=== PATIENT | female | born 1970 | race Caucasian/White ===

== ENCOUNTER 2017-09-16 17:11 | Emergency (ER) | payer MEDICARE ==
[~2017-09-16] VITALS: Ht 165.1 cm; Wt 104.3 kg
[2017-09-16] MEDS ORDERED: TRAMADOL 50 MG50 MG PO (17:23)
[2017-09-16] MEDS ORDERED: CELEXA20 MG PO (17:23)
[2017-09-16] MEDS ORDERED: HYDROCODONE-AP1 EAC6 PO (19:22)
[2017-09-16] MEDS ORDERED: ROBAXIN 750 MG750 M1 PO (19:27)
[2017-09-16 19:39] VITALS: BP 142/77
== END 2017-09-16 19:39 | disposition home or self-care (01) ==
LOC: M.ERS 17:11
DX: M25.551 Pain in right hip (principal); G25.81 Restless legs syndrome; Z88.5 Allergy status to narcotic agent

== ENCOUNTER 2018-01-31 17:59 | Emergency (ER) | payer MEDICARE ==
[~2018-01-31] VITALS: Ht 165.1 cm; Wt 90.7 kg
[~2018-01-31 17:59] MED LIST: CELEXA20 MG PO; HYDROCODONE-AP1 EAC6 PO; ROBAXIN 750 MG750 M1 PO; TRAMADOL 50 MG50 MG PO
[2018-01-31 18:54] VITALS: BP 109/77
== END 2018-01-31 18:54 | disposition home or self-care (01) ==
LOC: M.ERS 17:59
DX: S90.32XA Contusion of left foot, initial encounter (principal); Z88.5 Allergy status to narcotic agent; W01.0XXA Fall on same level from slipping, tripping and stumbling without subsequent striking against object, initial encounter; Y93.89 Activity, other specified; Y92.89 Other specified places as the place of occurrence of the external cause; Y99.8 Other external cause status

== ENCOUNTER 2018-10-07 18:32 | Emergency (ER) | payer MEDICARE ==
[~2018-10-07] VITALS: Ht 165.1 cm; Wt 86.2 kg
[2018-10-07 18:53] VITALS: BP 130/90
== END 2018-10-07 20:54 | disposition left against medical advice (07) ==
LOC: M.ERS 18:32
DX: Z53.21 Procedure and treatment not carried out due to patient leaving prior to being seen by health care provider (principal)

== ENCOUNTER 2019-12-23 18:58 | Emergency (ER) | payer MEDICARE ==
[~2019-12-23] VITALS: Ht 165.1 cm; Wt 112.5 kg
[2019-12-23] MEDS ORDERED: TRAMADOL 50 MG50 MG PO (19:08)
[2019-12-23] MEDS ORDERED: CYMBALTA60 MG PO (19:08)
[2019-12-23 19:37] LABS: ABSOLUTE BASOPHILS 0.1 thou/uL (0.0-0.2); ABSOLUTE EOSINOPHILS 0.1 thou/uL (0.0-0.7); ABSOLUTE LYMPHOCYTES 2.1 thou/uL (0.8-5.3); ABSOLUTE MONOCYTES 0.7 thou/uL (0.0-1.2); ABSOLUTE NEUTROPHILS 7.7 thou/uL (1.6-8.1); BASOPHILS 0.9 %; EOSINOPHILS 1.2 %; HEMATOCRIT 41.7 % (37.0-47.0); HEMOGLOBIN 14.2 gm/dL (12.0-15.0); LYMPHOCYTES 19.9 %; MCH 31.9 pg (26.0-34.0); MCHC 34.1 g/dL (28.0-37.0); MCV 93.6 fL (80.0-100.0); MONOCYTES 6.3 %; NUCLEATED RBCS 0 /100WBC; PLATELET COUNT* 212 thou/uL (150-400); POLYS 71.7 %; RBC 4.46 mil/uL (4.20-5.00); RDW-CV 13.8 % (10.5-14.5); WBC 10.7 thou/uL (4.0-11.0)
[2019-12-23 19:44] LABS: CALCIUM 8.3 mg/dL (8.5-10.1); CREATININE 0.9 mg/dL (0.6-1.3); POTASSIUM 3.7 mmol/L (3.5-5.1)
[2019-12-23 19:45] LABS: PROTIME 10.2 Seconds (9.20-11.50)
[2019-12-23 19:52] LABS: ALBUMIN 3.2 g/dL (3.4-5.0); TOTAL BILIRUBIN 0.4 mg/dL (<0.1-1.0); TOTAL PROTEIN 6.3 g/dL (6.4-8.2)
[2019-12-23 21:27] VITALS: BP 125/71
--- NOTE | 2019-12-24 19:18 | EKG ---
[place] [address] ELECTROCARDIOGRAM REPORT Name: BASHIR CEJA Room: [facility]#: [id number] Admission: 12/23/19 Attend Phys: Discharge: 12/23/19 Date of : 66 Date of Service: 12/23/19 190 Report #: [id number] THIS REPORT FOR: //name// [facility] ED Test Date: 2019-12-23 Test Time: 19:09:29 Pat Name: BASHIR CEJA Department: Room: Gender: F [employer] Operator: [facility] : 1970 Requested By: María Bean Order Number: [id number] MD: Guille Song Measurements Intervals Rentz Rate: 89 P: 54 UT: 162 QRS: -5 QRSD: 79 T: 58 QT: 356 QTc: 434 Interpretive Statements Sinus rhythm Baseline wander in lead(s) II,III,aVF No previous ECG available for comparison Electronically Signed On 12-24-2019 17:41:40 CDT by Guille Song [email or web address] <ELECTRONICALLY SIGNED> By: Guille Song MD, [facility] 12/24/19 1741 [id number] Guille Song MD, [facility] /EPI
== END 2019-12-23 21:28 | disposition home or self-care (01) ==
LOC: M.ERS 18:58
PROVIDERS: Personal Emergency Response Attendant
DX: K82.8 Other specified diseases of gallbladder (principal); R10.13 Epigastric pain; K21.9 Gastro-esophageal reflux disease without esophagitis; G25.81 Restless legs syndrome; Z88.5 Allergy status to narcotic agent; Z79.899 Other long term (current) drug therapy

== ENCOUNTER → 2019-12-26 | Outpatient (CLI) | payer MEDICARE ==
[~2019-12-26] MED LIST changes: +CYMBALTA60 MG PO
== END ==
LOC: M.RAD 12:41
PROVIDERS: ATTEND Family Medicine
DX: N60.01 Solitary cyst of right breast (principal); N63.10 Unspecified lump in the right breast, unspecified quadrant; R91.8 Other nonspecific abnormal finding of lung field; N64.89 Other specified disorders of breast

== ENCOUNTER → 2020-01-13 | Outpatient (CLI) | payer MEDICARE | LOC: M.CT 11:00 | PROVIDERS: ATTEND Family Medicine | DX: R91.8 Other nonspecific abnormal finding of lung field (principal); N63.10 Unspecified lump in the right breast, unspecified quadrant; J98.4 Other disorders of lung; J98.11 Atelectasis ==